=== PATIENT | female | born 1995 | race Hispanic/Latino ===

== ENCOUNTER 2021-10-21 07:22 | Day surgery (SDC) | payer BC ==
[2021-10-19 14:22] VITALS: BMI 49.1
[2021-10-21] MEDS ORDERED: EPINEPHrine 1 MG/ML AMP ONE (09:06)
[2021-10-21] MEDS ORDERED: Lidocaine 1% w/Epinephrine 1:100K 20 ML VIAL ONE (09:06)
[2021-10-21] MEDS ORDERED: Ciprofloxacin 0.2% Otic (0.25ML CONTAINER) ONE (09:06)
[2021-10-21] MEDS ORDERED: Bacitracin Zinc Ointment 30 gm TUBE ONE (09:06)
[2021-10-21] MEDS ORDERED: Ketamine 50 MG/ML (10ML VIAL) ONE (09:16)
[2021-10-21] MEDS ORDERED: fentaNYL Citrate/PF 100 MCG/2 ML SYRINGE ONE (09:16)
[2021-10-21] MEDS ORDERED: Midazolam HCl 2 mg/2 ml Vial ONE (09:32)
[2021-10-21] MEDS ORDERED: ePHEDrine 50 MG/ML VIAL ONE (09:38)
[2021-10-21] MEDS ORDERED: PROPOFOL 200 MG/20 ML VIAL ONE (09:38)
[2021-10-21] MEDS ORDERED: Succinylcholine 200 MG/10 ml SYRINGE FS ONE (09:38)
[2021-10-21] MEDS ORDERED: Dexamethasone 20 MG/5 ML VIAL ONE (09:38)
[2021-10-21] MEDS ORDERED: Lidocaine 1% PF 5 ML VIAL ONE (09:38)
[2021-10-21] MEDS ORDERED: Ondansetron PF 4 MG/2 ML Vial ONE (09:38)
[2021-10-21] MEDS ORDERED: PHENYLEPHRINE-NS 100 MCG/ML 10 ML SYRINGE ONE (09:38)
[2021-10-21] MEDS ORDERED: Promethazine HCl 25 MG/ML VIAL ONE (12:17)
[2021-10-21] MEDS ORDERED: HYDROcodone/Acetaminophen 5/325 mg Tablet ONE (13:16)
== END 2021-10-21 13:40 | disposition home or self-care (01) ==
LOC: SDC 07:22
PROVIDERS: ATTEND Specialist
PROC: 0NB50ZZ Excision of Right Temporal Bone, Open Approach (ICD-10-PCS; principal; 2021-10-21)
PROC: 09U707Z Supplement Right Tympanic Membrane with Autologous Tissue Substitute, Open Approach (ICD-10-PCS; principal; 2021-10-21)
DX: H65.21 Chronic serous otitis media, right ear (principal); H72.91 Unspecified perforation of tympanic membrane, right ear
CPT/HCPCS: 85014; J0171; J1100; J2250; J2405; J2550; J2704; J3490